=== PATIENT | female | born 1940 ===

== ENCOUNTER 2018-01-25 10:28 | Inpatient (IN) | payer OTHER ==
[~2018-01-25] VITALS: Ht 160 cm; Wt 54.4 kg
[2018-01-25] MEDS ORDERED: CARBIDOPA-LEVO1 EAC6 PO (11:00)
[2018-01-25] MEDS ORDERED: NORVASC5 MG PO (11:01)
[2018-01-25] MEDS ORDERED: LIPITOR20 MG PO (11:01)
[2018-02-02] MEDS ORDERED: XARELTO10 MG PO (08:33)
[2018-02-02] MEDS ORDERED: INTEGRA PLUS C1 EACH PO (08:33)
[2018-02-02] MEDS ORDERED: OXYC1TAB9 PO (08:33)
== END 2018-02-02 13:44 | DRG 470 ==
LOC: SURG 01-30 07:33 → O/R 01-30 07:33 → SURG 01-30 08:30
PROVIDERS: Orthopaedic Surgery Sports Medicine
PROC: 0SRB02Z Replacement of Left Hip Joint with Metal on Polyethylene Synthetic Substitute, Open Approach (ICD-10-PCS; principal; 2018-01-30 08:30)
DX: M16.12 Unilateral primary osteoarthritis, left hip (principal)